=== PATIENT | female | born 1970 | race Caucasian/White ===

== ENCOUNTER 2022-07-22 10:24 | Emergency (ER) | payer OTHER ==
[~2022-07-22] VITALS: Ht 157.5 cm; Wt 72.7 kg
[2022-07-22] MEDS ORDERED: MONT-35 PO (10:33)
[2022-07-22] MEDS ORDERED: CETI-450 PO (10:33)
[2022-07-22] MEDS ORDERED: FLUT16SP NASAL (10:33)
[2022-07-22] MEDS ORDERED: [UNRECOGNIZED DRUG - CODE] INJ (10:33)
[2022-07-22] MEDS ORDERED: ACETAMINOPHEN 500 MG TABLET PO ONE (12:45)
[2022-07-22] MEDS ORDERED: SODIUM CHLORIDE 0.9% 1,000 ML IV ONE (12:45)
[2022-07-22] MEDS ORDERED: KETOROLAC TROMETHAMINE 30 MG/ML VIAL IVP ONE (12:45)
[2022-07-22] MEDS ORDERED: METOCLOPRAMIDE HCL 5 MG/ML 2 ML VIAL IVP ONE (12:45)
[2022-07-22 13:26] VITALS: BP 149/69
== END 2022-07-22 15:08 | disposition home or self-care (01) ==
LOC: EMS 10:29
DX: R51.9 Headache, unspecified (principal); J44.9 Chronic obstructive pulmonary disease, unspecified; Z98.890 Other specified postprocedural states
CPT/HCPCS: 99284; 96374; 96361; 96375; J1885; J2765; J7030